=== PATIENT | female | born 1980 | race Caucasian/White ===

== ENCOUNTER 2016-07-20 12:32 | Emergency (ER) | payer OTHER ==
[2016-07-20 12:45] VITALS: BP 132/85
--- NOTE | 2016-07-20 12:57 | UC ---
Back Pain HPI - HPI Summary HPI Summary: pt presents with c/o left mid back pain that began 3 days ago. Denies injury or urinary symptoms. - History of Current Complaint Chief Complaint: UCBackPain Stated Complaint: LOW BACK PAIN Time Seen by Provider: 07/20/16 12:44 Hx Obtained From: Patient Hx Last Menstrual Period: 06/24/16 ?: No Onset/Duration: Gradual Onset, Lasting Days - 3 Timing: Constant Severity Initially: Mild Severity Currently: Mild Back Pain: Is Discrete @ - left mid back Character: Sharp - worsens with depp breaths or position, Dull, Aching Aggravating: Movement Alleviating: Rest, Position Associated Signs And Symptoms: Positive: Negative - Allergies/Home Medications Allergies/Adverse Reactions: Allergies Allergy/AdvReac Type Severity Reaction Status Date / Time Lisinopril Allergy Swelling Verified 07/20/16 12:38 Of Face,Lips,& Throat Meloxicam Allergy Flushing Verified 07/20/16 12:38 Codeine AdvReac Intermediate Altered Verified 07/20/16 12:38 Mental Status seasonal Allergy Eyes Uncoded 07/20/16 12:38 Itchy/Swollen/Red/Watery PMH/Surg Hx/FS Hx/Imm Hx Previously Healthy: Yes - Surgical History Surgical History: Yes Surgery Procedure, Year, and Place: C-sections x2, TUBAL LIGATION; cholecystectomy 07/02/14 at [facility] - Family History Known Family History: Positive: Unknown, Hypertension, Diabetes Negative: Respiratory Disease - Social History Lives: With Family Alcohol Use: None Substance Use Type: None Smoking Status (MU): Heavy Every Day Tobacco Smoker Type: Cigarettes Amount Used/How Often: 1/2 PPD Length of Time of Smoking/Using Tobacco: 18 Years Have You Smoked in the Last Year: Yes When Did the Patient Quit Smoking/Using Tobacco: Quit 06/29/14 Household Exposure Type: Cigarettes - Immunization History Most Recent Influenza Vaccination: NONE Most Recent Tetanus Shot: UTD Most Recent Pneumonia Vaccination: N/A Review of Systems Constitutional: Negative Skin: Negative Eyes: Negative ENT: Negative Respiratory: Negative Cardiovascular: Negative Gastrointestinal: Negative Genitourinary: Negative Motor: Other - left mid back pain with movement Neurovascular: Negative Musculoskeletal: Myalgia Neurological: Negative Psychological: Negative All Other Systems Reviewed And Are Negative: Yes Physical Exam Triage Information Reviewed: Yes Appearance: Well-Appearing, Obese Vital Signs: Initial Vital Signs Temp 97.8 F 07/20/16 12:39 Pulse 92 07/20/16 12:39 Resp 18 07/20/16 12:39 BP 132/85 07/20/16 12:39 Pulse Ox 99 07/20/16 12:39 Vital Signs Reviewed: Yes Neck exam: Normal Respiratory Exam: Normal Cardiovascular Exam: Normal Musculoskeletal Exam: Other Musculoskeletal: Positive: Other: - reproducible discomfort at mid left lateral back, Neurological Exam: Normal Psychological Exam: Normal Skin Exam: Normal Back Pain Course/Dx - Differential Dx/Diagnosis Differential Diagnosis/HQI/PQRI: Strain - muscle strain Provider Diagnoses: muscle strain, left mid back. chostochondritis Discharge - Discharge Plan Condition: Stable Disposition: HOME Prescriptions: predniSONE TAB* [Deltasone TAB*] 20 mg PO DAILY #4 tab Patient Education Materials: Costochondritis (ED), Back Pain (ED) Referrals: WILLIAMS Adorno [Primary Care Provider] - If Needed
== END 2016-07-20 13:04 | disposition home or self-care (01) ==
LOC: UCCORT 12:32
DX: S29.012A Strain of muscle and tendon of back wall of thorax, initial encounter (principal); X58.XXXA Exposure to other specified factors, initial encounter; M94.0 Chondrocostal junction syndrome [Tietze]; Z87.891 Personal history of nicotine dependence
CPT/HCPCS: 81003; 99212; G0463

== ENCOUNTER 2016-08-07 17:54 | Emergency (ER) | payer OTHER ==
[2016-08-07 18:04] VITALS: BP 131/68
--- NOTE | 2016-08-07 18:15 | UC ---
Skin Complaint HPI - History of Current Complaint Chief Complaint: UCRash Time Seen by Provider: 08/07/16 18:06 Stated Complaint: RASH Hx Obtained From: Patient Hx Last Menstrual Period: 07/25/16 ?: No Onset/Duration: Sudden Onset - redness on the inner lower leg with big blotches after exposure to the sun., Worse Since - today Skin Exposure Onset/Duration: Days Ago - 1 Onset Severity: Mild Current Severity: Moderate Location: Discrete - outer aspect right leg mild sunburn, inner aspect left leg much worse Aggravating: Touch Alleviating: Cold Associated Signs & Symptoms: Negative: Nausea, Diaphoresis, Fever, Chills Related History: Recent change in medication - on levaquin for pneumonia which is phototoxic. - Allergy/Home Medications Allergies/Adverse Reactions: Allergies Allergy/AdvReac Type Severity Reaction Status Date / Time Lisinopril Allergy Swelling Verified 08/07/16 17:59 Of Face,Lips,& Throat Meloxicam Allergy Flushing Verified 08/07/16 17:59 Codeine AdvReac Intermediate Altered Verified 08/07/16 17:59 Mental Status seasonal Allergy Eyes Uncoded 08/07/16 17:59 Itchy/Swollen/Red/Watery Home Medications: Home Medications Levofloxacin TAB* [Levaquin 750 MG TAB*] 750 mg PO DAILY 08/07/16 [History Confirmed 08/07/16] Loratadine [Claritin 10 MG CAP] 10 mg PO DAILY 08/07/16 [History Confirmed 08/07] Review of Systems Respiratory: Cough Neurological: Headache All Other Systems Reviewed And Are Negative: Yes PMH/Surg Hx/FS Hx/Imm Hx Respiratory History: Pneumonia GI/ History: Gastroesophageal Reflux - Surgical History Surgical History: Yes Surgery Procedure, Year, and Place: C-sections x2, TUBAL LIGATION; cholecystectomy 07/02/14 at [facility] - Family History Known Family History: Positive: Hypertension, Diabetes Negative: Cardiac Disease, Respiratory Disease - Social History Occupation: Employed Full-time Lives: With Family Alcohol Use: None Substance Use Type: None Smoking Status (MU): Heavy Every Day Tobacco Smoker Type: Cigarettes Amount Used/How Often: 1/2 PPD Length of Time of Smoking/Using Tobacco: 18 Years Have You Smoked in the Last Year: Yes When Did the Patient Quit Smoking/Using Tobacco: Quit 06/29/14 Household Exposure Type: Cigarettes Cessation Counseling: Patient Advised to Stop - Immunization History Most Recent Influenza Vaccination: NONE Most Recent Tetanus Shot: UTD Most Recent Pneumonia Vaccination: N/A Physical Exam Triage Information Reviewed: Yes Appearance: Well-Appearing, No Pain Distress, Well-Nourished Vital Signs: Initial Vital Signs Temp 97.7 F 08/07/16 18:00 Pulse 103 08/07/16 18:00 Resp 18 08/07/16 18:00 BP 131/68 08/07/16 18:00 Pulse Ox 97 08/07/16 18:00 Vital Signs Reviewed: Yes Eyes: Positive: Conjunctiva Clear Neck exam: Normal Respiratory: Positive: Wheezing - mild expiratory Cardiovascular Exam: Normal Musculoskeletal Exam: Normal Neurological Exam: Normal Psychological Exam: Normal Skin: Positive: Other - Sunburn on both legs, L>R Course/Dx - Differential Diagnoses - Skin Complaint Differential Diagnoses: Drug Rash, Richardson-Gael Syndrome, Urticaria - Diagnoses Provider Diagnoses: Sunburn legs. Acute bronchospasm Discharge - Discharge Plan Condition: Stable Disposition: HOME Prescriptions: predniSONE TAB* [Deltasone TAB*] 20 mg PO DAILY #18 tab Patient Education Materials: Sunburn (ED), Bronchospasm (ED), Prednisone (By mouth) Additional Instructions: Use Aloe Vera for the sunburn. Coppertone [employer] Pure and Simple sunscreen. Smoking Cessation Tricks. 1. Cut down by 1 cigarette per day every 2-3 days. Write the number of smokes for that day on the calendar. 2. Identify triggers to smoking: after meals, on the phone, in the car, with coffee, on breaks at work, etc. 3. Formulate a plan with a behavior to replace the smoking. Fireballs in the car , doodle pad on the phone, flavored creamer for the coffee, go for a walk after a meal or on break at work. 4. For stress smokes do deep breathing relaxation. Breath deep in through the nose hold the breath in for a few seconds then breath out slowly through the mouth.
== END 2016-08-07 18:30 | disposition home or self-care (01) ==
LOC: UCCORT 17:54
DX: L56.8 Other specified acute skin changes due to ultraviolet radiation (principal); J98.01 Acute bronchospasm; Z72.0 Tobacco use
CPT/HCPCS: 99212; G0463

== ENCOUNTER 2016-08-11 11:17 | Emergency (ER) | payer OTHER ==
[2016-08-11 11:40] VITALS: BP 128/70
== END 2016-08-11 13:01 | disposition left against medical advice (07) ==
LOC: UCCORT 11:17
DX: R05 Cough (principal); M54.9 Dorsalgia, unspecified; Z53.21 Procedure and treatment not carried out due to patient leaving prior to being seen by health care provider

== ENCOUNTER 2016-08-11 15:04 | Emergency (ER) | payer OTHER ==
[2016-08-11 17:16] VITALS: BP 125/82
--- NOTE | 2016-08-11 18:13 | RAD ---
Indication: Pneumonia. 2 views of the chest including dual energy PA views demonstrate no mediastinal shift. Heart is of normal size and configuration. Lung luciano appear clear. When compared to previous exam of July 01, 2015 no significant change is noted. IMPRESSION: NO ACTIVE CARDIOPULMONARY DISEASE IS NOTED.
--- NOTE | 2016-08-11 18:37 | UC ---
Respiratory Complaint HPI - HPI Summary HPI Summary: HAD XRAY DIAGNOSIS OF PNEUMONIA AT [facility] ONE WEEK AGO. TOOK ANTIBIOTICS AND SYMPTOMS IMPROVED. MILD OCCASIONALLY PRODUCTIVE COUGH CONTINUES. CALLED PRIMARY CARE PROVIDER TO HAVE REPEAT CXR DONE, UNABLE TO GET APPT UNTIL AUGUST. NO FEVER. BACK PAIN IS MILD SYMPTOM, ONLY WITH COUGHING. NO LEG PAIN. NO SHORTNESS OF BREATH. NO CHEST PAIN. - History of Current Complaint Chief Complaint: UCBackPain Stated Complaint: BACK PAIN/RECHECK PNEUMONIA Time Seen by Provider: 08/11/16 17:25 Hx Obtained From: Patient Hx Last Menstrual Period: 07/21/16 Onset/Duration: Gradual Onset, Lasting Weeks, Still Present - RESOLVING Timing: Intermittent Episodes Severity Initially: Mild Severity Currently: Mild Pain Intensity: 3 Pain Scale Used: 0-10 Numeric Character: Cough: Productive Aggravating Factors: Recumbent Position Associated Signs And Symptoms: Negative: Fever, Chills, Pleuritic Chest Pain, Dizziness, Calf Pain, Calf Swelling, URI, Nasal Congestion, Hoarseness, Sinus Discomfort - Risk Factors Pulmonary Embolism Risk Factors: Negative Cardiac Risk Factors: Negative Pseudomonas Risk Factors: Negative Tuberculosis Risk Factors: Negative - Allergies/Home Medications Allergies/Adverse Reactions: Allergies Allergy/AdvReac Type Severity Reaction Status Date / Time Lisinopril Allergy Swelling Verified 08/11/16 17:16 Of Face,Lips,& Throat Meloxicam Allergy Flushing Verified 08/11/16 17:16 Codeine AdvReac Intermediate Altered Verified 08/11/16 17:16 Mental Status seasonal Allergy Eyes Uncoded 08/11/16 17:16 Itchy/Swollen/Red/Watery PMH/Surg Hx/FS Hx/Imm Hx Previously Healthy: Yes - Surgical History Surgical History: Yes Surgery Procedure, Year, and Place: C-sections x2, TUBAL LIGATION; cholecystectomy 07/02/14 at [facility] - Family History Known Family History: Positive: Unknown, Hypertension, Diabetes Negative: Cardiac Disease, Respiratory Disease - Social History Occupation: Employed Full-time Lives: With Family Alcohol Use: None Substance Use Type: None Smoking Status (MU): Heavy Every Day Tobacco Smoker Type: Cigarettes Amount Used/How Often: 1/2 PPD Length of Time of Smoking/Using Tobacco: 18 Years Have You Smoked in the Last Year: Yes When Did the Patient Quit Smoking/Using Tobacco: Quit 06/29/14 Household Exposure Type: Cigarettes Cessation Counseling: Counseled 3+Min - 10 Min - Immunization History Most Recent Influenza Vaccination: NONE Most Recent Tetanus Shot: UTD Most Recent Pneumonia Vaccination: N/A Review of Systems Constitutional: Negative Skin: Negative Eyes: Negative ENT: Negative Respiratory: Cough Cardiovascular: Negative Gastrointestinal: Negative Genitourinary: Negative Motor: Negative Neurovascular: Negative Musculoskeletal: Negative Neurological: Negative Psychological: Negative All Other Systems Reviewed And Are Negative: Yes Physical Exam Triage Information Reviewed: Yes Appearance: Well-Appearing, No Pain Distress, Well-Nourished Vital Signs: Initial Vital Signs Temp 98 F 08/11/16 17:10 Pulse 92 08/11/16 17:10 Resp 20 08/11/16 17:10 BP 125/82 08/11/16 17:10 Pulse Ox 99 08/11/16 17:10 Vital Signs Reviewed: Yes Eye Exam: Normal ENT Exam: Normal ENT: Positive: Normal ENT inspection, Hearing grossly normal, TMs normal Dental Exam: Normal Neck exam: Normal Neck: Positive: Supple, Nontender, No Lymphadenopathy Respiratory Exam: Other - COUGH Respiratory: Positive: Chest non-tender, Lungs clear, Normal breath sounds, No respiratory distress, No accessory muscle use Cardiovascular Exam: Normal Cardiovascular: Positive: RRR, No Murmur Abdominal Exam: Normal Musculoskeletal Exam: Normal Neurological Exam: Normal Psychological Exam: Normal Skin Exam: Normal UC Diagnostic Evaluation - Laboratory O2 Sat by Pulse Oximetry: 99 Respiratory Course/Dx - Differential Dx/Diagnosis Differential Diagnosis/HQI/PQRI: Pulmonary Edema, Pulmonary Embolism, Sinusitis Provider Diagnoses: BRONCHITIS Discharge - Discharge Plan Condition: Stable Disposition: HOME Patient Education Materials: Acute Cough (ED) Referrals: Di Thomas MD [Primary Care Provider] - Additional Instructions: FOLLOW UP CHEST XRAY (BASED ON PREVIOUS DIAGNOSIS OF PNEUMONIA) WAS CLEAR TODAY. PLEASE SEEK EVALUATION AT EMERGENCY DEPARTMENT IF YOUR COUGH WORSENS OR IF BACK PAIN BECOMES CONCERNING SYMPTOM, OR IF NEW SYMPTOMS (SUCH FEVER OR LEG PAIN) DEVELOP
== END 2016-08-11 18:28 | disposition home or self-care (01) ==
LOC: UCCORT 15:04
DX: J40 Bronchitis, not specified as acute or chronic (principal); Z90.49 Acquired absence of other specified parts of digestive tract; Z88.5 Allergy status to narcotic agent; Z88.8 Allergy status to other drugs, medicaments and biological substances; Z87.891 Personal history of nicotine dependence; Z71.6 Tobacco abuse counseling
CPT/HCPCS: 71020; 99211; G0463

== ENCOUNTER 2017-02-12 14:41 | Emergency (ER) | payer OTHER ==
--- NOTE | 2017-02-12 15:14 | UC ---
Hip/Pelvis Pain - HPI Summary HPI Summary: 36 year old female presents with left hip pain. - History Of Current Complaint Stated Complaint: KNEE AND HIP PAIN LEFT SIDE Time Seen by Provider: 02/12/17 15:13 Hx Obtained From: Patient Hx Last Menstrual Period: 07/21/16 Onset/Duration: Sudden Onset Severity Initially: Moderate Severity Currently: Moderate Pain Scale Used: 0-10 Numeric - 5 Character Of Pain: Aching, Throbbing Aggravating Factor(s): Weight Bearing Alleviating Factor(s): Rest, Position - Allergies/Home Medications Allergies/Adverse Reactions: Allergies Allergy/AdvReac Type Severity Reaction Status Date / Time Lisinopril Allergy Swelling Verified 02/12/17 15:16 Of Face,Lips,& Throat Meloxicam Allergy Flushing Verified 02/12/17 15:16 Codeine AdvReac Intermediate Altered Verified 02/12/17 15:16 Mental Status seasonal Allergy Eyes Uncoded 02/12/17 15:16 Itchy/Swollen/Red/Watery Home Medications: Home Medications Acetaminophen [Eq Pain Reliever] 500 mg PO PRN 02/12/17 [History] Ibuprofen TAB* [Advil TAB*] 800 mg PO Q6H PRN 02/12/17 [History Confirmed ] PMH/Surg Hx/FS Hx/Imm Hx Previously Healthy: Yes - Surgical History Surgical History: Yes Surgery Procedure, Year, and Place: C-sections x2, TUBAL LIGATION; cholecystectomy 07/02/14 at [facility] - Family History Known Family History: Positive: Unknown, Hypertension, Diabetes Negative: Cardiac Disease, Respiratory Disease - Social History Alcohol Use: None Substance Use Type: None Smoking Status (MU): Heavy Every Day Tobacco Smoker Type: Cigarettes Amount Used/How Often: 1/2 PPD Length of Time of Smoking/Using Tobacco: 18 Years Have You Smoked in the Last Year: Yes When Did the Patient Quit Smoking/Using Tobacco: Quit 06/29/14 Household Exposure Type: Cigarettes - Immunization History Most Recent Influenza Vaccination: NONE Most Recent Tetanus Shot: UTD Most Recent Pneumonia Vaccination: N/A Review of Systems Constitutional: Negative Skin: Negative Eyes: Negative ENT: Negative Respiratory: Negative Cardiovascular: Negative Gastrointestinal: Negative Genitourinary: Negative Motor: Negative Neurovascular: Negative Musculoskeletal: Other: - left hip pain Neurological: Negative Psychological: Negative All Other Systems Reviewed And Are Negative: Yes Physical Exam Triage Information Reviewed: Yes Vital Signs Reviewed: Yes Eye Exam: Normal ENT Exam: Normal Dental Exam: Normal Neck exam: Normal Neck: Positive: 1 Respiratory Exam: Normal Cardiovascular Exam: Normal Abdominal Exam: Normal Musculoskeletal Exam: Normal Musculoskeletal: Positive: Other: - left hip pain Neurological Exam: Normal Psychological Exam: Normal Skin Exam: Normal Hip Injury Course/Dx - Differential Dx/Diagnosis Provider Diagnoses: left hip pain. left hip burisitis Discharge - Discharge Plan Condition: Stable Disposition: HOME Prescriptions: Methocarbamol TAB* [Robaxin 500 MG TAB*] 500 mg PO TID PRN #30 tab PRN Reason: Pain Methylprednisolone [Medrol Dosepak 4 MG*] 4 mg PO .SEE NASH INSTRUCTION #21 tab Patient Education Materials: Hip Bursitis (ED) Referrals: WILLIAMS Adorno [Primary Care Provider] - Salvador Gonzalez [Physical Therapist] -
[2017-02-12 15:23] VITALS: BP 146/81
== END 2017-02-12 15:39 | disposition home or self-care (01) ==
LOC: UCCORT 14:41
DX: M70.72 Other bursitis of hip, left hip (principal); Z87.891 Personal history of nicotine dependence
CPT/HCPCS: 99212; G0463

== ENCOUNTER 2017-05-20 13:25 | Emergency (ER) | payer OTHER ==
[2017-05-20 14:27] VITALS: BP 154/97
--- NOTE | 2017-05-20 14:31 | UC ---
Back Pain HPI - HPI Summary HPI Summary: was on vacation thinks she has muscle strain mid back - took ibuprofen without relief. also sinus congestion, nonfcough, earpain vernon, sob with exertion but not at rest. chills at night not sure of fever. - History of Current Complaint Chief Complaint: UCRespiratory Stated Complaint: BACK PAIN Time Seen by Provider: 05/20/17 14:29 Hx Obtained From: Patient Hx Last Menstrual Period: 05/03/17 ?: No Onset/Duration: Lasting Weeks Severity Initially: Moderate Severity Currently: Moderate Pain Intensity: 5 Back Pain: Is Discrete @ - mid back Character: Aching Aggravating Factor(s): Movement, Lifting, Bending Alleviating Factor(s): Position - Risk Factors AAA Risk Factors: Hypertension - Allergies/Home Medications Allergies/Adverse Reactions: Allergies Allergy/AdvReac Type Severity Reaction Status Date / Time lisinopril Allergy Swelling Verified 05/20/17 14:17 Of Face,Lips,& Throat codeine AdvReac Altered Verified 05/20/17 14:17 Mental Status meloxicam AdvReac Flushing Verified 05/20/17 14:17 PMH/Surg Hx/FS Hx/Imm Hx Previously Healthy: Yes - Surgical History Surgical History: Yes Surgery Procedure, Year, and Place: C-sections x2, TUBAL LIGATION; cholecystectomy - Family History Known Family History: Positive: Unknown, Hypertension, Diabetes Negative: Cardiac Disease, Respiratory Disease - Social History Occupation: Employed Full-time Lives: With Family Alcohol Use: None Substance Use Type: None Smoking Status (MU): Heavy Every Day Tobacco Smoker Type: Cigarettes Amount Used/How Often: 1/2-1 PPD Length of Time of Smoking/Using Tobacco: since age 17 Have You Smoked in the Last Year: Yes When Did the Patient Quit Smoking/Using Tobacco: Quit 06/29/14 Household Exposure Type: Cigarettes - Immunization History Most Recent Influenza Vaccination: NONE Most Recent Tetanus Shot: UTD Most Recent Pneumonia Vaccination: N/A Review of Systems Constitutional: Chills Skin: Negative Eyes: Negative ENT: Ear Ache, Sinus Congestion, Sinus Pain/Tenderness Respiratory: Cough - nonprod Cardiovascular: Negative Gastrointestinal: Negative Genitourinary: Negative Motor: Negative Musculoskeletal: Myalgia - mid back Neurological: Negative Is Patient Immunocompromised?: No All Other Systems Reviewed And Are Negative: Yes Physical Exam Triage Information Reviewed: Yes Appearance: Ill-Appearing Vital Signs: Initial Vital Signs Temp 98.1 F 05/20/17 14:15 Pulse 92 05/20/17 14:15 Resp 16 05/20/17 14:15 BP 154/97 05/20/17 14:15 Pulse Ox 99 05/20/17 14:15 Vital Signs Reviewed: Yes ENT: Positive: Pharyngeal erythema, Nasal congestion, TM bulging - vernon, Sinus tenderness Respiratory Exam: Normal Cardiovascular Exam: Normal Musculoskeletal: Positive: Other: - thoracic area tender to touch - mid back but no swelling present Neurological Exam: Normal Psychological Exam: Normal Skin Exam: Normal Back Pain Course/Dx - Course Course Of Treatment: RICE as directed for back - take muscle relaxant at hs - discussed use. take abx as directed with food to prevent gi upset. continue with increased flud intake daily while on abx to prevent dehydration. continue ibuprofen 600 mg po every 6 hours prn pain. f/u prn - Differential Dx/Diagnosis Differential Diagnosis/HQI/PQRI: Strain, Sprain Provider Diagnoses: muscle strain. sinusitis Discharge - Sign-Out/Discharge Documenting (check all that apply): Discharge - Discharge Plan Condition: Stable Disposition: HOME Prescriptions: Amoxicillin PO (*) [Amoxicillin 875 MG (*)] 875 mg PO BID 10 Days #20 tab tiZANidine TAB* [Zanaflex TAB*] 2 mg PO BEDTIME #10 tab MDD 1 Referrals: WILLIAMS Adorno [Primary Care Provider] - 1 Week - Billing Disposition and Condition Condition: STABLE Disposition: HOME
== END 2017-05-20 14:55 | disposition home or self-care (01) ==
LOC: UCCORT 13:25
DX: S29.012A Strain of muscle and tendon of back wall of thorax, initial encounter (principal); X58.XXXA Exposure to other specified factors, initial encounter; Y93.9 Activity, unspecified; J32.9 Chronic sinusitis, unspecified; Y92.9 Unspecified place or not applicable; Z88.3 Allergy status to other anti-infective agents; Z88.5 Allergy status to narcotic agent; Z88.8 Allergy status to other drugs, medicaments and biological substances; F17.210 Nicotine dependence, cigarettes, uncomplicated
CPT/HCPCS: 99212; G0463

== ENCOUNTER 2017-11-18 07:01 | Emergency (ER) | payer OTHER ==
[2017-11-18 07:28] VITALS: BP 139/95
--- NOTE | 2017-11-18 07:44 | UC ---
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 "Burning" sensation in back and ribs while coughing, intermittent shortness of breath, myalgias, and chills for one day. No known fever." -here w/ her . + sinus pain pressure. has had many sinus infections and sx are consistent. + asthma history that is seasonal induced more so in winter. albuterol is old and has not been using it. +fatigue. no fever. - History of Current Complaint Chief Complaint: UCRespiratory Stated Complaint: CONGESTION BACK RIBS Time Seen by Provider: 11/18/17 07:42 Hx Last Menstrual Period: 10/28/17 Pain Intensity: 0 - Allergies/Home Medications Allergies/Adverse Reactions: Allergies Allergy/AdvReac Type Severity Reaction Status Date / Time lisinopril Allergy Swelling Verified 11/18/17 07:23 Of Face,Lips,& Throat codeine AdvReac Altered Verified 11/18/17 07:23 Mental Status meloxicam AdvReac Flushing Verified 11/18/17 07:23 PMH/Surg Hx/FS Hx/Imm Hx Previously Healthy: Yes - Surgical History Surgical History: Yes Surgery Procedure, Year, and Place: C-sections x2, TUBAL LIGATION; cholecystectomy - Family History Known Family History: Positive: Unknown, Hypertension, Diabetes Negative: Cardiac Disease, Respiratory Disease - Social History Alcohol Use: None Substance Use Type: None Smoking Status (MU): Heavy Every Day Tobacco Smoker Type: Cigarettes Amount Used/How Often: 1/2-1 PPD Length of Time of Smoking/Using Tobacco: Since Age 17 Have You Smoked in the Last Year: Yes When Did the Patient Quit Smoking/Using Tobacco: Quit 06/29/14 Household Exposure Type: Cigarettes - Immunization History Most Recent Influenza Vaccination: NONE Most Recent Tetanus Shot: UTD Most Recent Pneumonia Vaccination: N/A Review of Systems Constitutional: Fatigue Skin: Negative Eyes: Negative ENT: Sinus Congestion, Sinus Pain/Tenderness Respiratory: Cough Cardiovascular: Negative Gastrointestinal: Negative Genitourinary: Negative Motor: Negative Neurovascular: Negative Musculoskeletal: Negative Neurological: Negative Psychological: Negative Is Patient Immunocompromised?: No All Other Systems Reviewed And Are Negative: Yes Physical Exam Triage Information Reviewed: Yes Appearance: No Pain Distress, Ill-Appearing - mildly, Obese Vital Signs: Initial Vital Signs Temp 98.3 F 11/18/17 07:21 Pulse 84 11/18/17 07:21 Resp 18 11/18/17 07:21 BP 139/95 11/18/17 07:21 Pulse Ox 100 11/18/17 07:21 Vital Signs Reviewed: Yes Eye Exam: Normal ENT: Positive: Hearing grossly normal, Pharyngeal erythema - +PND, Nasal congestion, TMs normal, Sinus tenderness - b/l maxillary Dental Exam: Normal Respiratory Exam: Normal Respiratory: Positive: Normal breath sounds, No respiratory distress, No accessory muscle use, Decreased breath sounds. Negative: Crackles, Rhonchi, Stridor, Wheezing Cardiovascular Exam: Normal Cardiovascular: Positive: RRR, No Murmur Abdomen Description: Positive: Nontender, Soft Neurological Exam: Normal Psychological Exam: Normal Skin Exam: Normal UC Diagnostic Evaluation - Laboratory O2 Sat by Pulse Oximetry: 100 Respiratory Course/Dx - Course Course Of Treatment: Sinusitis and asthmatic bronchitis. -alb Q 4-6 hrs prn. amox - Differential Dx/Diagnosis Differential Diagnosis/HQI/PQRI: Asthma, Bronchitis, Lower Resp Infection, Sinusitis Provider Diagnoses: Sinusitis, asthmatic bronchitis Discharge - Sign-Out/Discharge Documenting (check all that apply): Patient Departure All imaging exams completed and their final reports reviewed: No Studies - Discharge Plan Condition: Stable Disposition: HOME Prescriptions: Albuterol HFA INHALER* [Ventolin HFA Inhaler*] 2 puff INH Q4H PRN #1 mdi PRN Reason: Cough Amoxicillin PO (*) [Amoxicillin 875 MG (*)] 875 mg PO BID #20 tab Patient Education Materials: Asthma (ED), Sinusitis (ED), Acute Bronchitis (ED) Referrals: Radha Liu MD [Medical Doctor] - 5 Days Additional Instructions: -Make sure to take a probiotic daily while on antibiotics to help prevent a potential complication of antibiotic use called c diff. Some well known brands that can be found OTC are [employer], [employer] and [employer] Make sure to complete the entire prescription unless advised otherwise by your health care provider. -Tylenol or ibuprofen can be helpful for pain/discomfort. -Fluids and rest -Use the albuterol puffer every 4-6 hours - Billing Disposition and Condition Condition: STABLE Disposition: Home
== END 2017-11-18 08:11 | disposition home or self-care (01) ==
LOC: UCCORT 07:01
DX: J32.9 Chronic sinusitis, unspecified (principal); J45.909 Unspecified asthma, uncomplicated; Z88.8 Allergy status to other drugs, medicaments and biological substances; Z88.5 Allergy status to narcotic agent; Z88.6 Allergy status to analgesic agent; F17.210 Nicotine dependence, cigarettes, uncomplicated
CPT/HCPCS: 99211; G0463

== ENCOUNTER 2019-01-23 15:16 | Emergency (ER) | payer OTHER ==
[2019-01-23 15:30] VITALS: BP 151/100
--- NOTE | 2019-01-23 16:09 | UC ---
Throat Pain/Nasal Nikolas HPI - HPI Summary HPI Summary: Patient is a 38-year-old female presenting with for complaint of nasal congestion, sinus pressure, postnasal drip, headache, muscle aches, and sore throat since yesterday. Denies cough, shortness of breath, and wheezing. Denies nausea or vomiting. Notes chills and subjective fevers. Denies decreased appetite and fluid intake. 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 Patient states she took ibuprofen for her headache but it did not relieve pressure in her face. Patient is an everyday heavy smoker. - History of Current Complaint Chief Complaint: UCGeneralIllness Stated Complaint: SKAGGS,SINUS PRESSURE/PAIN,BODY ACHES Hx Obtained From: Patient Hx Last Menstrual Period: 12/29/18 Onset/Duration: Gradual Onset Severity: Moderate Pain Intensity: 4 Pain Scale Used: 0-10 Numeric Related History: Seasonal Allergies - Allergies/Home Medications Allergies/Adverse Reactions: Allergies Allergy/AdvReac Type Severity Reaction Status Date / Time lisinopril Allergy Swelling Verified 01/23/19 15:30 Of Face,Lips,& Throat codeine AdvReac Altered Verified 01/23/19 15:30 Mental Status meloxicam AdvReac Flushing Verified 01/23/19 15:30 PMH/Surg Hx/FS Hx/Imm Hx GI/ History: Gastroesophageal Reflux - Surgical History Surgical History: Yes Surgery Procedure, Year, and Place: C-sections x2, TUBAL LIGATION; cholecystectomy - Family History Known Family History: Positive: Unknown, Hypertension, Diabetes, Non- Contributory Negative: Cardiac Disease, Respiratory Disease - Social History Lives: With Family Alcohol Use: None Substance Use Type: None Smoking Status (MU): Heavy Every Day Tobacco Smoker Type: Cigarettes Amount Used/How Often: 1/2-1 PPD Length of Time of Smoking/Using Tobacco: Since Age 17 Have You Smoked in the Last Year: Yes When Did the Patient Quit Smoking/Using Tobacco: Quit 06/29/14 Household Exposure Type: Cigarettes - Immunization History Most Recent Influenza Vaccination: NONE Most Recent Tetanus Shot: UTD Most Recent Pneumonia Vaccination: N/A Review of Systems All Other Systems Reviewed And Are Negative: Yes Constitutional: Positive: Fever - Subjective, Chills Eyes: Positive: Negative ENT: Positive: Sore Throat, Nasal Discharge - PND, Sinus Congestion, Sinus Pain/ Tenderness - Sinus pressure. Negative: Ear Ache Respiratory: Positive: Negative. Negative: Shortness Of Breath, Cough Cardiovascular: Positive: Negative Gastrointestinal: Positive: Negative Musculoskeletal: Positive: Myalgia - "All over muscle aches" Neurological: Positive: Headache Physical Exam Triage Information Reviewed: Yes Appearance: Well-Appearing, No Pain Distress, Obese Vital Signs: Initial Vital Signs Temp 97.9 F 01/23/19 15:26 Pulse 96 01/23/19 15:26 Resp 16 01/23/19 15:26 BP 151/100 01/23/19 15:26 Pulse Ox 100 01/23/19 15:26 Lab Results 01/23/19 01/23/19 Range/Units 16:24 16:27 Influenza A (Rapid) Negative (Negative) Influenza B (Rapid) Negative (Negative) Group A Strep Rapid Negative (Negative) Vital Signs Reviewed: Yes Eyes: Positive: Conjunctiva Clear ENT: Positive: Hearing grossly normal, Pharyngeal erythema, TMs normal, Tonsillar swelling, Sinus tenderness - maxillary, Uvula midline. Negative: Nasal congestion, Nasal drainage, Tonsillar exudate Neck: Positive: Supple, No Lymphadenopathy, Tenderness @ - right tonsillar Respiratory Exam: Normal Respiratory: Positive: Lungs clear, Normal breath sounds, No respiratory distress. Negative: Crackles, Rhonchi, Stridor, Wheezing Cardiovascular Exam: Normal Cardiovascular: Positive: RRR Neurological: Positive: Alert Psychological: Positive: Age Appropriate Behavior Skin Exam: Normal Throat Pain/Nasal Course/Dx - Course Course Of Treatment: Negative rapid strep and flu. Discussed viral illness and to continue with symptomatic treatment. Instructed to follow up with pcp if symptoms do not resolve within 7 days. Discussed elevated blood pressure with patient and instructed to follow up with PCP within the next 1-2 weeks. Patient voiced understanding and agreed with treatment plan. - Differential Dx/Diagnosis Differential Diagnosis/HQI/PQRI: Influenza, Sinusitis Provider Diagnosis: Upper respiratory infection, Elevated blood pressure reading without diagnosis of hypertension Discharge ED - Sign-Out/Discharge Documenting (check all that apply): Patient Departure All imaging exams completed and their final reports reviewed: No Studies - Discharge Plan Condition: Stable Disposition: HOME Patient Education Materials: Upper Respiratory Infection (ED), Postnasal Drip ( DC) Forms: *Work Release Referrals: Radha Liu MD [Primary Care Provider] - If Needed Additional Instructions: As discussed, your symptoms are most likely caused by a virus. You may take mucinex or another decongestant to help reduce your mucus production. You may use nasal saline spray or Flonase as directed for symptomatic relief. You may take ibuprofen as directed for pain relief. Get plenty of rest and fluids. Follow up with your primary care doctor if your symptoms do not resolve within 7 days. - Billing Disposition and Condition Condition: STABLE Disposition: Home
[2019-01-23 16:39] LABS: Influenza A Molecular NEGATIVE (Negative); Influenza B Molecular NEGATIVE (Negative)
== END 2019-01-23 16:47 | disposition home or self-care (01) ==
LOC: UCCORT 15:16
DX: J06.9 Acute upper respiratory infection, unspecified (principal); R03.0 Elevated blood-pressure reading, without diagnosis of hypertension; F17.210 Nicotine dependence, cigarettes, uncomplicated; Z88.8 Allergy status to other drugs, medicaments and biological substances; Z88.5 Allergy status to narcotic agent; Z88.6 Allergy status to analgesic agent
CPT/HCPCS: 87651; 99211; G0463